=== PATIENT | male | born 1960 | race Caucasian/White ===

== ENCOUNTER → 2017-08-13 08:26 | Outpatient (CLI) | payer MEDICAID | END | disposition home or self-care (01) | LOC: D.RT 08:26 | DX: J44.9 Chronic obstructive pulmonary disease, unspecified (principal) ==

== ENCOUNTER 2018-11-15 21:17 | Inpatient (IN) | payer MEDICAID ==
[~2018-11-15] VITALS: Ht 182.9 cm; Wt 99.1 kg
[2018-11-15] MEDS ORDERED: GLUCOTROL ER2.5 MG (21:23)
[2018-11-15] MEDS ORDERED: GLUCOPHAGE500 MG (21:23)
[2018-11-15] MEDS ORDERED: TOPROL XL50 MG (21:23)
[2018-11-15 21:46] LABS: BASOPHILS 0.3 % (0-2); HEMATOCRIT 41.5 % (42.0-54.0); IMMATURE GRANULOCYTES 0.5 % (0-5); LYMPHOCYTES 23.4 % (15-50); MCH 33.3 pg (26.0-34.0); MCHC 36.1 g/dL (31.0-37.0); MEAN PLATELET VOLUME 12.1 fL (7.4-10.4); MONOCYTES 11.4 % (2-11); NEUTROPHILS 62.4 % (40-80); PLATELET COUNT 150 10x3/uL (130-400); RBC 4.51 10x6/uL (4.20-6.10); RDW 12.4 % (11.5-14.5)
[2018-11-15 22:04] LABS: INR 1.02 (0.85-1.17); PROTIME 12.9 SECONDS (11.6-15.0)
[2018-11-15 22:06] LABS: ALBUMIN 3.2 g/dL (3.4-5.0); ANION GAP 16.8 mmol/L (8-16); BILIRUBIN - TOTAL 0.67 mg/dL (0.2-1.3); CALCIUM 9.8 mg/dL (8.5-10.1); CARBON DIOXIDE 22.1 mmol/L (21.0-32.0); CREATININE - SERUM 8.6 mg/dL (0.6-1.3); POTASSIUM - SERUM 4.9 mmol/L (3.5-5.1); PROTEIN - SERUM 7.2 g/dL (6.4-8.2)
[2018-11-15 22:20] LABS: AMYLASE - SERUM 84 U/L (25-115); C-REACTIVE PROTEIN 0.4 mg/dL (0.0-0.9); CKMB 0.5 U/L (0.0-3.6); CREATINE KINASE 25 UL (21-232); LIPASE 549 U/L (73-393); PRO BNP 460 pg/mL (0-125); THYROID STIMULATING HORMONE 2.65 uIU/mL (0.36-3.74); TROPONIN-I < 0.017 ng/mL (0.000-0.060)
--- NOTE | 2018-11-15 22:20 | NUR ---
CRITICAL LACTIC ACID OF 2.7 PER LAB
[2018-11-16] MEDS ORDERED: GLUCOTROL 5 MG T5 MG PO (00:06)
[2018-11-16] MEDS ORDERED: GLUCOPHAGE1000 MG PO (00:08)
[2018-11-16] MEDS ORDERED: GLIPIZIDE10 MG PO (00:09)
[2018-11-16] MEDS ORDERED: SPIRIVA18 MCG INH (00:12)
[2018-11-16] MEDS ORDERED: ALBUTEROL SULF8.5 GM INH (00:13)
[2018-11-16] MEDS ORDERED: ALBUTEROL2.5 MG/3 M INH (00:14)
[2018-11-16 00:46] VITALS: BP 91/50; BMI 29.3
--- NOTE | 2018-11-16 00:54 | NUR ---
RECIEVED REPORT FROM KIM OLSON IN ER. ARRIVED TO FLOOR IN W/C WITH FAMILY AT BEDSIDE. ALERT AND ORIENTED X4. UP AD CORDELL TO B/R. IV TO RIGHT AC WITH NS INFUSING AT 125CC/HR. LUNG SOUNDS CLEAR IN UPPER LOBES AND DIMINISHED IN LOWER LOBES. DENIES ANY PAIN AT THIS TIME.
[2018-11-16 02:20] LABS: BASOPHILS 0.4 % (0-2); EOSINOPHILS 2.8 % (0-7); HEMATOCRIT 37.6 % (42.0-54.0); HEMOGLOBIN 13.3 g/dL (13.5-17.5); IMMATURE GRANULOCYTES 0.7 % (0-5); LYMPHOCYTES 27.4 % (15-50); MCH 32.7 pg (26.0-34.0); MCHC 35.4 g/dL (31.0-37.0); MCV 92.4 fL (80.0-100.0); MEAN PLATELET VOLUME 11.9 fL (7.4-10.4); MONOCYTES 9.8 % (2-11); NEUTROPHILS 58.9 % (40-80); PLATELET COUNT 128 10x3/uL (130-400); RBC 4.07 10x6/uL (4.20-6.10); RDW 12.4 % (11.5-14.5)
[2018-11-16 02:21] LABS: WBC 6.8 10x3/uL (4.8-10.8)
[2018-11-16 02:28] LABS: ALBUMIN 2.8 g/dL (3.4-5.0); ANION GAP 16.5 mmol/L (8-16); BILIRUBIN - TOTAL 0.53 mg/dL (0.2-1.3); CALCIUM 8.6 mg/dL (8.5-10.1); CARBON DIOXIDE 20.5 mmol/L (21.0-32.0); CREATININE - SERUM 8.1 mg/dL (0.6-1.3); MAGNESIUM - SERUM 1.7 mg/dL (1.8-2.4); PHOSPHOROUS 4.6 mg/dL (2.5-4.9); PROTEIN - SERUM 6.3 g/dL (6.4-8.2)
[2018-11-16 04:00] VITALS: BP 100/72
--- NOTE | 2018-11-16 07:38 | NUR ---
PT C/O HEACHACHE, GAVE 650MG OF TYLENOL FOR PAIN LEVEL OF 9/10. PT DENIES ANY OTHER NEEDS AT THIS TIME. A/O X4, RESP EVEN AND NONLABORED ON RA. RT AC INFUISNG NS AT 125CC/HR. CALL LIGHT IN REACH, BEDSIDE RAILS X2, NAD NOTED, WILL CONTINUE PLAN OF CARE.
[2018-11-16 08:00] VITALS: BP 92/55
[2018-11-16 08:10] VITALS: BMI 29.3
[2018-11-16 12:54] LABS: APPEARANCE CLEAR (CLEAR); BILIRUBIN NEGATIVE (NEGATIVE); COLOR YELLOW (YELLOW); GLUCOSE 250 mg/dL (NEGATIVE); KETONE NEGATIVE (NEGATIVE); NITRITE NEGATIVE (NEGATIVE); PROTEIN 1+ mg/dL (NEGATIVE); SPECIFIC GRAVITY 1.015 (1.005-1.020); UROBILINOGEN NORMAL (NORMAL)
[2018-11-16 12:56] LABS: CREATININE - URINE 82.8 mg/dL (30-125); PROTEIN - URINE 35.1 mg/dL (0.0-11.9)
[2018-11-16 13:08] VITALS: Ht 182.9 cm; Wt 99.1 kg
--- NOTE | 2018-11-16 13:49 | NUR ---
BLOOD SUGAR OF 165, 2UNITS OF HUMULIN GIVEN PER S/S. PT ASKING WHEN HE IS BEING DISCHARGED, INFORMED PT THAT I DID NOT KNOW, THAT SHOULD BE ROUNDING SHORTLY.
--- NOTE | 2018-11-16 15:00 | NUR ---
DR. SMITH AT BEDSIDE TALKING TO PT. PT ASKED DR. SMITH IF HE IS BEING DISCHARGE TODAY, AND DR. SMITH NOTIFIED PT THAT WE NEED TO CONTINUE TO MONITOR HIS KIDNEY FUNCTION. PT STATED " WHAT IF I DECIDE TO LEAVE?." DR. SMITH INFORMED PT THAT HE NEEDS TO STAY SO WE CAN KEEP MONITOR HIS KIDNEY FUNCTION. DR. SMITH WAS LEAVNIG THE ROOM PT STATED " I AM NOT STAYING" AND STARTED TO PULL IV OUT. INSTRUCTED PT TO LEAVE IV IN AND THAT I WOULD TAKE IT OUT IF HE WANTED TO LEAVE AMA. PT TALKING WITH SISTER AND DECIDING IF HE IS GOING TO STAY OR NOT. PT DOES NOT WANT TO WEAR HEART MONITOR. FAMILY AT BEDSIDE, WILL NOTIFY THIS NURSE IF PT DECIDEDS TO LEAVE AMA OR STAY.
[2018-11-16 17:30] VITALS: BP 84/53
--- NOTE | 2018-11-16 19:36 | NUR ---
REPORTED PT WANTED TO GO AMA TODAY. EDUCATED ON DISEASE PROCESS. VERBALIZED UNDERSTANDING. ALERT AND ORIENTED X4. UP AD CORDELL. NICOTINE PATCH TO LEFT SHOULDER. IV TO RIGHT AC WITH NS AT 125CC/HR. DENIES ANY NEEDS AT THIS TIME.
[2018-11-16 20:00] VITALS: BP 96/54
[2018-11-17] VITALS: BP 91/56
[2018-11-17 04:00] VITALS: BP 114/67
[2018-11-17 06:00] LABS: BASOPHILS 0.4 % (0-2); HEMATOCRIT 38.1 % (42.0-54.0); HEMOGLOBIN 13.4 g/dL (13.5-17.5); IMMATURE GRANULOCYTES 0.2 % (0-5); LYMPHOCYTES 26.5 % (15-50); MCH 33.1 pg (26.0-34.0); MCHC 35.2 g/dL (31.0-37.0); MCV 94.1 fL (80.0-100.0); MEAN PLATELET VOLUME 11.9 fL (7.4-10.4); MONOCYTES 9.9 % (2-11); PLATELET COUNT 128 10x3/uL (130-400); RBC 4.05 10x6/uL (4.20-6.10); RDW 12.3 % (11.5-14.5)
[2018-11-17 06:27] LABS: ANION GAP 16.8 mmol/L (8-16); BILIRUBIN - TOTAL 0.48 mg/dL (0.2-1.3); CALCIUM 8.5 mg/dL (8.5-10.1); CARBON DIOXIDE 21.8 mmol/L (21.0-32.0); MAGNESIUM - SERUM 1.7 mg/dL (1.8-2.4); PHOSPHOROUS 3.6 mg/dL (2.5-4.9); POTASSIUM - SERUM 4.6 mmol/L (3.5-5.1); PROTEIN - SERUM 6.6 g/dL (6.4-8.2)
[2018-11-17 06:28] LABS: CREATININE - SERUM 4.9 mg/dL (0.6-1.3)
--- NOTE | 2018-11-17 09:22 | NUR ---
PT SITTING UP IN BED. RR EVEN AND UNLABORED. NO DISTRESS NOTED. DENIES NEEDS AT THIS TIME. ALERT AND ORIENTED. WILL CONTINUE TO MONITOR.
[2018-11-17 09:40] VITALS: BP 105/59
--- NOTE | 2018-11-17 15:49 | NUR ---
IV IN RIGHT AC LEAKING. D/C WITH CATHETER TIP INTACT. RESITED TO RIGHT UPPER ARM X2 STICKS.
[2018-11-17 17:00] VITALS: BP 107/70
--- NOTE | 2018-11-17 19:22 | NUR ---
RECIEVED UP SITTING ON SIDE OF BED. ALERT AND ORIENTED X4. UP AD CORDELL. IV TO RIGHT UPPER ARM WITH NS INFUSING AT 125/HR. STATED NICOTINE PACT CAME OFF IN SHOWER. DENIES ANY NEEDS AT THIS TIME.
[2018-11-17 20:00] VITALS: BP 108/67
[2018-11-18] VITALS: BP 113/76
[2018-11-18 04:00] VITALS: BP 121/66
[2018-11-18 05:55] LABS: BASOPHILS 0.8 % (0-2); EOSINOPHILS 3.2 % (0-7); HEMATOCRIT 39.4 % (42.0-54.0); HEMOGLOBIN 13.8 g/dL (13.5-17.5); IMMATURE GRANULOCYTES 0.2 % (0-5); LYMPHOCYTES 27.3 % (15-50); MCH 32.6 pg (26.0-34.0); MCV 93.1 fL (80.0-100.0); MEAN PLATELET VOLUME 11.4 fL (7.4-10.4); MONOCYTES 13.5 % (2-11); PLATELET COUNT 145 10x3/uL (130-400); RBC 4.23 10x6/uL (4.20-6.10); RDW 12.3 % (11.5-14.5)
[2018-11-18 06:12] LABS: WBC 6.5 10x3/uL (4.8-10.8)
[2018-11-18 06:19] LABS: ALBUMIN 3.1 g/dL (3.4-5.0); ANION GAP 13.9 mmol/L (8-16); BILIRUBIN - TOTAL 0.6 mg/dL (0.2-1.3); CALCIUM 8.4 mg/dL (8.5-10.1); CARBON DIOXIDE 24.4 mmol/L (21.0-32.0); MAGNESIUM - SERUM 1.4 mg/dL (1.8-2.4); PHOSPHOROUS 2.7 mg/dL (2.5-4.9); POTASSIUM - SERUM 4.3 mmol/L (3.5-5.1)
[2018-11-18 06:42] LABS: CREATININE - SERUM 2.3 mg/dL (0.6-1.3)
--- NOTE | 2018-11-18 07:33 | NUR ---
BED SIDE SHIFT REPORT COMPLETE. ALERT AND ORIENTED. UP AD CORDELL. PT STATES HIS IV IS LEAKING. IV D/C WITH CATHETER TIP INTACT. DRESSING PLACED CDI. NO FURTHER DISTRESS NOTED. RR EVEN AND UNLABORED. DENIES NEEDS AT THIS TIME.
[2018-11-18 09:12] VITALS: BP 118/70
--- NOTE | 2018-11-18 13:03 | NUR ---
Diabetes diet education: Met with pt re: DMT2 diet instruction Pt reports eating meals at different times every day. Pt usually eats only 2 meals a day but sometimes may not eat all day long. Pt has stopped drinking sugary drinks and is drinking water and diet drinks. Reviewed CHO containing foods and the affect CHO have on glucose. Stressed the importance of eating meals and snacks at about the same time every day to keep glucose under better control. Reviewed sample menus with emphasis on CHO foods and portion size. Answered all of pts questions. Provided pt with printed diet information and RDN name and phone number. Pt with good understanding of information provided. Thank you for the consult.
[2018-11-18] MEDS ORDERED: PROTONIX40 MG PO (13:12)
--- NOTE | 2018-11-18 14:30 | NUR ---
PT D/C PER PERSONAL VEHICHLE. ALL PERSONAL BELONGINGS AND D/C PAPERWORK SENT WITH HIM. PT DENIED FURTHER QUESTIONS AND VERBALIZED UNDERSTANDING.
--- NOTE | 2018-11-18 16:17 | MORECARE ---
CASE MANAGEMENT DISCHARGE SUMMARY PATIENT: RADHA STONE UNIT: [id number] ADM DATE: 11/15/18 AGE: 58 : 64 SEX: M ROOM/BED: D.7966 AUTHOR: JERAD,DOC PHYSICIAN: REFERRING PHYSICIAN: CORY AKBAR MD DATE OF SERVICE: 11/18/18 Discharge Plan Patient Name: RADHA STONE Facility: [facility]:[place] : 1960 Planned Disposition: Home Anticipated Discharge Date: 11/18/18 Discharge Date: 11/18/2018 Expected LOS: 3 Initial Reviewer: [email or web address] Initial Review Date: 11/18/2018 Generated: 11/18/18 5:17 pm Comments DCP- Discharge Planning Updated by [email or web address]: Baldo Abraham on 11/18/18 3:[address] Patient Name: RADHA STONE Admission Status: ER Accout number: [id number] Admission Date: 11-15-2018 : 1960 Admission Diagnosis: Attending: RAFFY, Current LOS: 3 Anticipated DC Date: 11-18-2018 Planned Disposition: Home Primary Insurance: MEDICAID [place] Discharge Planning Comments: CM MET WITH PT IN ROOM TO DISCUSS DISCHARGE PLANNING AND NEEDS. PT REPORTS LIVING AT HOME INDEPENDENTLY WITH HIS BROTHER. PT HAS A GLUCOMETER AND NO MEDICAL EQUIPMENT PROVIDER PREFERENCE. PT HAS NO OUTSIDE SERVICES ASSISTING IN THE HOME. CM DISCUSSED AVAILABILITY OF HOME HEALTH, REHAB SERVICES AND MEDICAL EQUIPMENT. PT DENIES DISCHARGE NEEDS, REPORTS HIS FRIEND WILL PICK HIM UP FOR DISCHARGE HOME TODAY. Supervisor [employer]: Baldo Abraham DCPIA - Discharge Planning Initial Assessment Updated by [id number]: Baldo Abraham on 11/18/18 4:12 pm * Is the patient Alert and Oriented? Yes * How many steps to enter\exit or inside your home? 4-0 / 1-I * PCP DR. AKBAR * Pharm[facility] * Preadmission Environment Home with Family * ADLs Independent * Equipment Glucometer * Other Equipment NO MEDICAL EQUIPMENT PROVIDER PREFERENCE * List name and contact numbers for known caregivers / representatives who currently or will assist patient after discharge: EHRNÁN LEWISGAN, FRIEND, * Verbal permission to speak to the caregivers and representatives has been obtained from the patient. N/A * Community resources currently utilized None * Please name any agencies selected above. NONE * Additional services required to return to the preadmission environment? No * Can the patient safely return to the preadmission environment? Yes * Has this patient been hospitalized within the prior 30 days at any hospital? No Patient Name: RADHA STONE Page [id number] at [id number] All edits/amendments must be made on the electronic document DICTATION DATE: 11/18/181616 COMPUTER ASSEMBLER: ASHISH 11/18/181616 RPT#: [id number] DC DATE:11/18/18 STATUS: DIS IN [facility] [address] [place] [address] END OF REPORT
== END 2018-11-18 15:03 | disposition home or self-care (01) | DRG 314 ==
LOC: D.ER 21:17 → D.M2 22:46
PROVIDERS: Family Medicine; Family Medicine Adult Medicine; Internal Medicine Nephrology; ADMIT Family Medicine; ATTEND Family Medicine
DX: I95.9 Hypotension, unspecified (principal); N17.0 Acute kidney failure with tubular necrosis; K85.90 Acute pancreatitis without necrosis or infection, unspecified; F17.213 Nicotine dependence, cigarettes, with withdrawal; E87.1 Hypo-osmolality and hyponatremia; E11.65 Type 2 diabetes mellitus with hyperglycemia; I10 Essential (primary) hypertension

== ENCOUNTER 2020-08-05 05:16 | Day surgery (SDC) | payer MEDICAID ==
[~2020-08-05 05:16] MED LIST: ALBUTEROL SULF8.5 GM INH; ALBUTEROL2.5 MG/3 M INH; GABAPENTIN300 MG PO; GLIPIZIDE10 MG PO; GLUCOPHAGE1000 MG PO; GLUCOPHAGE500 MG; GLUCOTROL 5 MG T5 MG PO; GLUCOTROL ER2.5 MG; PROTONIX40 MG PO; SPIRIVA18 MCG INH; TOPROL XL50 MG
[2020-08-05] MEDS ORDERED: DILTIAZEM 24HR180 M4 PO (06:04)
[2020-08-05 06:36] LABS: BASOPHILS 0.2 % (0-2); EOSINOPHILS 3.1 % (0-7); HEMATOCRIT 45.3 % (42.0-54.0); HEMOGLOBIN 15.2 g/dL (13.5-17.5); IMMATURE GRANULOCYTES 0.4 % (0-5); LYMPHOCYTE ABS# 1.34 10x3/uL (1.32-3.57); LYMPHOCYTES 24.5 % (15-50); MCH 32.4 pg (26.0-34.0); MCHC 33.6 g/dL (31.0-37.0); MCV 96.6 fL (80.0-100.0); MEAN PLATELET VOLUME 10.2 fL (7.4-10.4); MONOCYTES 9.9 % (2-11); NEUTROPHIL ABS# 3.39 10x3/uL (1.78-5.38); NEUTROPHILS 61.9 % (40-80); PLATELET COUNT 162 10x3/uL (130-400); RBC 4.69 10x6/uL (4.20-6.10); RDW 13.5 % (11.5-14.5); WBC 5.5 10x3/uL (4.8-10.8)
[2020-08-05 06:53] LABS: ANION GAP 11.7 mmol/L (8-16); CALCIUM 9.3 mg/dL (8.5-10.1); CARBON DIOXIDE 28.6 mmol/L (21.0-32.0); CREATININE - SERUM 1.2 mg/dL (0.6-1.3); POTASSIUM - SERUM 4.3 mmol/L (3.5-5.1)
[2020-08-05 06:56] LABS: SARS-CoV-2 ANTIGEN NEGATIVE- SARS-COV-2 (NEGATIVE)
[2020-08-06] MEDS ORDERED: HYDROCODON-ACE1 EA10 PO (09:13)
[2020-08-06] MEDS ORDERED: MEDROL DOSE PACK4 MG PO (09:13)
== END 2020-08-06 10:01 | disposition home or self-care (01) ==
LOC: D.OPS 05:16 → D.M3 10:19 → D.SDCHOLD 10:28 → D.M3 10:32
PROVIDERS: Anesthesiology; Neurological Surgery
DX: M50.13 Cervical disc disorder with radiculopathy, cervicothoracic region (principal)